=== PATIENT | male | born 1980 | race Caucasian/White ===

== ENCOUNTER 2023-05-03 21:53 | Emergency (ER) | payer MEDICAID, SELFPAY ==
[2023-05-03 21:54] VITALS: BP 127/85; PULSE 74; RESP 18; TEMP 36.6; O2SAT 97; BMI 22.5
[2023-05-03 22:12] LABS: Basophils # 0.1 10^3/uL (0.0-0.1); Basophils % 0.8 %; Eosinophils # 0.5 10^3/uL (0.0-0.8); Eosinophils % 5.4 %; Hematocrit 43.9 % (37-53); Lymphocytes # 2.9 10^3/uL (0.8-4.8); Lymphocytes % 33.2 %; Mean Corpuscular HGB Conc 34.2 g/dL (30-55); Mean Corpuscular Volume 96.5 fl (82-101); Mean Platelet Volume 9.8 fL (7.4-10.4); Monocytes # 0.8 10^3/uL (0.2-0.9); Monocytes % 8.7 %; Neutrophils # 4.55 10^3/uL (1.8-7.7); Neutrophils % 51.4 %; Nucleated Red Blood Cells % 0 %; Platelet Count 345 10^3/cmm (157-399); Red Blood Count 4.55 10^6/uL (3.85-5.65); Red Cell Distribution Width 12.1 % (12.1-15.1); White Blood Count 8.85 10^3/uL (3.29-11.43)
[2023-05-03 22:17] LABS: INR 0.78 (0.8-1.2)
[2023-05-03 22:23] LABS: Alanine Aminotransferase 44 U/L (0-41); Albumin Level 4.3 g/dL (3.5-5.2); Alkaline Phosphatase 99 U/L (40-130); Aspartate Amino Transferase 41 U/L (0-40); Blood Urea Nitrogen 15 mg/dL (6-20); Calcium 9.5 mg/dL (8.5-10.5); Carbon Dioxide 31 mmol/L (22-29); Chloride 100 mmol/L (98-107); Creatinine Clr Calc Pharmacy 113.4606; Globulin 2.5 g/dL (1.3-4.6); Glomerular Filtration Rate 81.9 mL/min (90-130); Glucose 107 mg/dL (65-115); Osmolality Calculated 289 mOsm/kg (285-295); Sodium 139 mmol/L (136-145); Total Bilirubin 0.2 mg/dL (0.15-1.2); Total Protein 6.8 g/dL (6.6-8.7)
[2023-05-03 22:37] LABS: Anion Gap 12.4 (5-19); Potassium 4.4 mmol/L (3.5-5.1)
--- NOTE | 2023-05-03 22:55 | CTR_ITS ---
PROCEDURE INFORMATION: Exam: CT Abdomen And Pelvis With Contrast Exam date and time: 05/03/2023 11:16 PM Age: 42 years old Clinical indication: Abdominal pain; Localized; Patient HX: Recovery alcoholic, vomited blood x5 today, pain on right side that now radiates to the left. ; Additional info: Abd pain TECHNIQUE: Imaging protocol: Computed tomography of the abdomen and pelvis with contrast. Radiation optimization: All CT scans at this facility use at least one of these dose optimization techniques: automated exposure control; mA and/or kV adjustment per patient size (includes targeted exams where dose is matched to clinical indication); or iterative reconstruction. Contrast material: OMNI 350; Contrast volume: 100 ml; Contrast route: INTRAVENOUS (IV); COMPARISON: No relevant prior studies available. RADIATION DOSE METRICS: Total DLP (mGy-cm): 501 FINDINGS: Lungs: Bibasilar atelectasis. Liver: Scattered subcentimeter hepatic cysts. Gallbladder and bile ducts: Gallbladder wall thickening, consider correlation with ultrasound. Pancreas: Normal. No ductal dilation. Spleen: Normal. No splenomegaly. Adrenal glands: Normal. No mass. Kidneys and ureters: Bilateral punctate non-obstructing calyceal stones. Stomach and bowel: Prominent fluid in the small bowel without dilation may reflect an enteritis. Appendix: No evidence of appendicitis. Intraperitoneal space: Unremarkable. No free air. No significant fluid collection. Vasculature: Unremarkable. No abdominal aortic aneurysm. Lymph nodes: Unremarkable. No enlarged lymph nodes. Urinary bladder: Unremarkable as visualized. Reproductive: Unremarkable as visualized. Bones/joints: Unremarkable. No acute fracture. Soft tissues: Unremarkable. Other findings: Bilateral punctate non-obstructing calyceal stones. CT/CT abdomen pelvis w con* [id number] IMPRESSION: 1. Prominent fluid in the small bowel without dilation may reflect an enteritis. 2. Scattered subcentimeter hepatic cysts. 3. Bibasilar atelectasis. 4. Bilateral punctate non-obstructing calyceal stones. 5. Gallbladder wall thickening, consider correlation with ultrasound. 6. Bilateral punctate non-obstructing calyceal stones.
--- NOTE | 2023-05-03 22:55 | W.ED.GIBLEED ---
HPI - GI Bleed General: Chief complaint: GI Bleed Stated complaint: vomiting blood Time Seen by Provider: 05/03/23 22:23 History of Present Illness: 42-year-old male presents emergency department with complaints of abdominal pain and having several episodes of nausea and vomiting. He states he is currently at a alcohol rehabilitation program and is at day #7 he states he has been doing well until today but started having abdominal pain that he describes as a 6 out of 10. He states he has been a significant half gallon per day liquor drinker until recently and is concerned that his abdominal pain may be associated with his liver. He states that he did vomit what appeared to be some blood this evening. He states his pain is a cramping pain. Associated symptoms: Reports abdominal pain, nausea and vomiting Review of Systems General: Reports: 10 or more systems reviewed and unremarkable except in HPI and below GI: Reports: abdominal pain, nausea and vomiting Physical Exam Narrative: EXAM NARRATIVE: Constitutional: the patient appears well nourished and of normal development. Vital signs as documented. No acute distress at present. Alert and oriented-to person, place, time and situation. Head, eyes, ears, nose, mouth, throat: Normocephalic, atraumatic. Pupils-equal, round, reactive to light. No scleral icterus. Normal-appearing external ears. Normal appearing nasal turbinates, no drainage. No obvious oral lesions, posterior oropharynx without erythema or exudates. Neck: Supple, trachea is midline, no lymphadenopathy, no jugular venous distension, thyromegaly, or carotid bruits. Carotid upstrokes are brisk bilaterally. Lungs: clear to auscultation to all lung agrawal. Symmetrical rise and fall of chest, no obvious signs of increased work of breathing at present. Cardiac: Regular rate and rhythm, positive S1, S2. No murmurs, rubs or gallops that I can appreciate Abdomen: Soft, right upper and lower quadrant tender to palpation. normal active bowel sounds to all quadrants. No palpable masses, no organomegaly and abdominal bruits. Extremities: 2+ pulses in the upper extremities that are equal bilaterally, 2+ pulses in the lower extremities that are equal bilaterally. Non-edematous. Moves all extremities well, sensation to all extremities are noted. Skin: Warm, dry, intact. Course Vital Signs: Vital signs: Vital Signs Temperature 97.8 F 05/03/23 21:54 Pulse Rate 74 05/03/23 23:30 Respiratory Rate 19 H 05/03/23 23:30 Blood Pressure 117/82 05/03/23 23:30 Pulse Oximetry 98 05/03/23 23:30 Oxygen Delivery Me thod Room Air 05/03/23 21:54 MDM - GI Bleed Medical Decision Making Physical exam completed and documented, I will obtain laboratory evaluation to include a CBC, CMP, lipase, urinalysis, and a CT scan of the patient's abdomen pelvis to evaluate for possible differential diagnosis of bowel obstruction, incarcerated hernia, abdominal wall strain, abdominal wall hematoma, constipation. I will provide the patient IV access and IV fluid as well as a CT scan abdomen pelvis with contrast for evaluation for possible colitis, acute appendicitis, diverticulitis. Lab Data I reviewed the patient's lab results. 05/03/23 21:35 05/03/23 21:35 Radiology Impressions Abdomen/Pelvis CT 05/03/23 22:55 IMPRESSION: 1. Prominent fluid in the small bowel without dilation may reflect an enteritis. 2. Scattered subcentimeter hepatic cysts. 3. Bibasilar atelectasis. 4. Bilateral punctate non-obstructing calyceal stones. 5. Gallbladder wall thickening, consider correlation with ultrasound. 6. Bilateral punctate non-obstructing calyceal stones. Gallbladder Ultrasound 05/04/23 00:35 IMPRESSION: Hyperechoic liver, which can be seen with fatty infiltration or hepatocellular disease. Laboratory Results WBC 8.85 10^3/uL (3.29-11.43) 05/03/23 21:35 RBC 4.55 10^6/uL (3.85-5.65) 05/03/23 21:35 Hgb 15.00 g/dL (11.27-16.99) 05/03/23 21:35 Hct 43.9 % (37-53) 05/03/23 21:35 MCV 96.5 fl (82-101) 05/03/23 21:35 MCH 33.0 pg (27-33) 05/03/23 21:35 MCHC 34.2 g/dL (30-55) 05/03/23 21:35 RDW 12.1 % (12.1-15.1) 05/03/23 21:35 Plt Count 345 10^3/cmm (157-399) 05/03/23 21:35 MPV 9.8 fL (7.4-10.4) 05/03/23 21:35 Neut % (Auto) 51.4 % 05/03/23 21:35 Lymph % (Auto) 33.2 % 05/03/23 21:35 [place] % (Auto) 8.7 % 05/03/23 21:35 Eos % (Auto) 5.4 % 05/03/23 21:35 Baso % (Auto) 0.8 % 05/03/23 21:35 Neut # (Auto) 4.55 10^3/uL (1.8-7.7) 05/03/23 21:35 Lymph # (Auto) 2.9 10^3/uL (0.8-4.8) 05/03/23 21:35 [place] # (Auto) 0.8 10^3/uL (0.2-0.9) 05/03/23 21:35 Eos # (Auto) 0.5 10^3/uL (0.0-0.8) 05/03/23 21:35 Baso # (Auto) 0.1 10^3/uL (0.0-0.1) 05/03/23 21: Nucleated RBC % (auto) 0 % 05/03/23 21: Nucleated RBCs # 0.0 /100WBC 05/03/23 21:35 PT 11.00 SECONDS (12.1-14.9) L 05/03/23 21:35 INR 0.78 (0.8-1.2) L 05/03/23 21:35 Sodium 139 mmol/L (136-145) 05/03/23 21:35 Potassium 4.4 mmol/L (3.5-5.1) 05/03/23 21:35 Chloride 100 mmol/L (98-107) 05/03/23 21:35 Carbon Dioxide 31 mmol/L (22-29) H 05/03/23 21:35 Anion Gap 12.4 (5-19) 05/03/23 21:35 BUN 15 mg/dL (6-20) 05/03/23 21:35 Creatinine 1.0 mg/dL (0.7-1.2) 05/03/23 21:35 GFR Calculation 81.9 mL/min (90-130) L 05/03/23 21:35 Glucose 107 mg/dL (65-115) 05/03/23 21:35 Calculated Osmolality 289 mOsm/kg (285-295) 05/03/23 21:35 Calcium 9.5 mg/dL (8.5-10.5) 05/03/23 21:35 Total Bilirubin 0.2 mg/dL (0.15-1.2) 05/03/23 21:35 AST 41 U/L (0-40) H 05/03/23 21:35 ALT 44 U/L (0-41) H 05/03/23 21:35 Alkaline Phosphatase 99 U/L (40-130) 05/03/23 21:35 Total Protein 6.8 g/dL (6.6-8.7) 05/03/23 21:35 Albumin 4.3 g/dL (3.5-5.2) 05/03/23 21:35 Globulin 2.5 g/dL (1.3-4.6) 05/03/23 21:35 Lipase 56 U/L (13-60) 05/03/23 21:35 Urine Color Light yellow (Yellow) 05/03/23 23:08 Urine Appearance Clear (CLEAR) 05/03/23 23:08 Urine pH 8 (5-7) H 05/03/23 23:08 Ur Specific [place] 1.015 (1.005-1.030) 05/03/23 23:08 Urine Protein Neg (Negative) 05/03/23 23:08 Urine Glucose (UA) Norm (Normal) 05/03/23 23:08 Urine Ketones Negative (Negative) 05/03/23 23:08 Urine Blood Neg (Negative) 05/03/23 23:08 Urine Nitrate Negative (Negative) 05/03/23 23:08 Urine Bilirubin Neg (Negative) 05/03/23 23:08 Prot Sulfosalicylic Acd Negative (Negative) 05/03/23 23:08 Urine Urobilinogen Neg mg/dL (Negative) 05/03/23 23:08 Ur Leukocyte Esterase Negative (Negative) 05/03/23 23:08 Ethyl Alcohol < 10 mg/dL (0-10) 05/03/23 21:35 All radiology interpretation(s) finalized by discharge Discharge Plan Discharge Patient Disposition: Home Clinical Impression: Enteritis, Abdominal pain, Nausea & vomiting Condition: Stable Discharge Orders: Discharge ED (Routine); Ordered 05/04/23 Ordered By: Sebastien Andrade Discharge Diet: Usual diet Discharge Activity: Resume usual activity Patient Instructions: Abdominal Pain (ED), Opioid Safety, Pain Management Activity Restrictions/Additional Instructions: Activity Restrictions/Additional Instructions: Thank you for choosing [facility] for your healthcare needs today. Please realize that you were seen in the Emergency Department and that we are providing you with an emergency medical screening exam and this may not be a complete and all inclusive of all the testing and or medical work-up that you may need to determine your ailment or severity of your illness. It is very important that you follow-up as instructed with your Primary care provider or Specialist for additional evaluation and to discuss your medical treatment plan. Coding Level of Care Code ED Back End Architect for Lyn Lopez
[2023-05-03 23:16] LABS: Lipase 56 U/L (13-60)
[2023-05-03 23:17] LABS: Alcohol Level < 10 mg/dL (0-10)
[2023-05-03 23:19] LABS: Add Urine Microscopic? NO; Charge for UA Resulting for Rev
[2023-05-03] MEDS: iohexol 350 mg/mL 500 mL Btl (per mL) IV (23:23)
[2023-05-03 23:27] LABS: Bilirubin Urine Neg (Negative); Blood Urine Neg (Negative); Glucose Urine UA Norm (Normal); Ketones Urine Negative (Negative); Leukocyte Esterase Urine Negative (Negative); Nitrate Urine Negative (Negative); Protein Urine Neg (Negative); Specific Gravity, Urine 1.015 (1.005-1.030); Sulfosalicylic Acid Urine Negative (Negative); Urine Appearance Clear (CLEAR); Urine Color Light yellow (Yellow); Urobilinogen Urine Neg (Negative); pH Urine 8 (5-7)
[2023-05-03 23:30] VITALS: BP 117/82; PULSE 74; RESP 19; O2SAT 98
[2023-05-03] MEDS: LORazepam 2 mg/mL INJ 10 mL MDV 1 MG IV (23:37)
[2023-05-03] MEDS: sodium chloride 0.9% 1,000 ML 999 ML IV (23:38)
[2023-05-03] MEDS: ondansetron 2 mg/ML SDV 2 mL 4 MG IVP (23:38)
--- NOTE | 2023-05-04 00:35 | USR_ITS ---
PROCEDURE INFORMATION: Exam: US Abdomen, Limited; Right Upper Quadrant Exam date and time: 05/04/2023 1:13 AM Age: 42 years old Clinical indication: Abdominal pain; Generalized; Additional info: Ruq abd pain TECHNIQUE: Imaging protocol: Real time ultrasound of the abdomen with image documentation. Limited exam focused on the right upper quadrant. COMPARISON: CT abdomen pelvis w con* [id number] 05/03/2023 11:16 PM FINDINGS: Liver: Liver is diffusely increased in echogenicity, most commonly seen in hepatic steatosis, though other forms of parenchymal liver disease could have a similar appearance. This limits evaluation for subtle isoechoic masses but no masses are seen. Patent main portal vein with normal direction of flow. Gallbladder: There is mild thickening of the gallbladder wall, likely secondary to underdistention. No pericholecystic fluid. No gallstones. Negative sonographic Gaming's sign. Biliary ducts: Normal. No stones. No dilation. Pancreas: Visualized pancreas is unremarkable. Right kidney: Normal. No mass. No hydronephrosis. US/US gall bladder [id number] IMPRESSION: Hyperechoic liver, which can be seen with fatty infiltration or hepatocellular disease.
[2023-05-04] MEDS: ketorolac 30 mg/mL INJ IVP (00:41)
[2023-05-04 01:30] VITALS: BP 122/83; PULSE 66; RESP 14
[2023-05-04 03:31] VITALS: BP 116/72
[2023-05-04 04:01] VITALS: BP 125/78; PULSE 79; O2SAT 95
[2023-05-04 04:29] VITALS: BP 147/72; PULSE 77; O2SAT 93
[2023-05-04 04:36] VITALS: BP 147/72; PULSE 79; RESP 18; O2SAT 94
== END 2023-05-04 04:36 | disposition home or self-care (01) ==
PROVIDERS: Emergency Medicine; Emergency Provider Internal Medicine
DX: K52.9 Noninfective gastroenteritis and colitis, unspecified (principal)
CPT/HCPCS: 74177; 76705; 80053; 80307; 81003; 83690; 85025; 85610; 96374; 96375; 99285; J1885; J2060; J2405; J7030; Q9967